=== PATIENT | male | born 1995 | race Caucasian/White ===

== ENCOUNTER 2016-08-09 20:11 | Emergency (ER) | payer BC, OTHER ==
[~2016-08-09] VITALS: Ht 182.9 cm; Wt 65.0 kg
[2016-08-09 20:13] VITALS: BP 144/84; PULSE 91; RESP 15; TEMP 98.1; O2SAT 98
[2016-08-09 23:00] VITALS: BP 132/82; PULSE 71; RESP 15; O2SAT 98
[2016-08-09 23:00] LABS: AUTOMATED NEUTROPHIL # 4.7 TH/MM3 (1.8-7.7); BASOPHIL % 0.6 % (0.0-2.0); EOSINOPHIL % 0.3 % (0.0-4.0); HEMATOCRIT 44.1 % (39.0-51.0); HEMO FLAGS DIFF FINAL; LYMPH % 30.4 % (9.0-44.0); LYMPHOCYTE # 2.3 TH/MM3 (1.0-4.8); MEAN CELL VOLUME 83.3 FL (80.0-100.0); MEAN CORPUSCULAR HEMOGLOBIN 28.7 PG (27.0-34.0); MEAN CORPUSCULAR HGB CONC 34.5 % (32.0-36.0); MONO % 6.7 % (0.0-8.0); PLATELET COUNT 272 TH/MM3 (150-450); RED BLOOD COUNT 5.29 MIL/MM3 (4.50-5.90); RED CELL DISTRIBUTION WIDTH 12.8 % (11.6-17.2); WHITE BLOOD COUNT 7.5 TH/MM3 (4.0-11.0)
[2016-08-09 23:15] LABS: BACTERIA, URINE RARE /hpf; BLOOD, URINE NEG (NEG); COMMENT (UR) CULT NOT INDICATED; CULTURE IF INDICATED CULT NOT INDICATED; GLUCOSE,URINE NEG (NEG); KETONE, URINE NEG (NEG); MUCUS URINE FEW /lpf (OCC); NITRITE,URINE NEG (NEG); SQUAMOUS EPITHELIAL CELL URINE <1 /hpf (0-5); URINE COLOR YELLOW (YELLW/STRAW)
[2016-08-09 23:20] LABS: ANION GAP 8 MEQ/L (5-15); AST (GOT) 9 U/L (15-39); BICARBONATE 31.5 MEQ/L (21.0-32.0); BLOOD UREA NITROGEN 10 MG/DL (7-18); CHLORIDE 100 MEQ/L (98-107); GLOMERULAR FILTRATION RATE 105 ML/MIN (>89); POTASSIUM 4.2 MEQ/L (3.5-5.1); SODIUM (NA) 139 MEQ/L (136-145)
[2016-08-09] MEDS ORDERED: SODIUM CHLOR 0.9% 1000 ML INJ 1,000 ML IV SCH (23:22)
[2016-08-09 23:23] LABS: ALKALINE PHOSPHATASE 69 U/L (45-117); ALT (GPT) 19 U/L (9-52); TOTAL BILIRUBIN ADULT 0.4 MG/DL (0.2-1.0)
[2016-08-09] MEDS ORDERED: LIDOCAINE VISCOUS 2% SOLN 15 ML UDC PO ONE (23:30)
[2016-08-09] MEDS ORDERED: ALUMINUM/MAGNESIUM/SIMETH 30 ML CUP PO ONE (23:30)
[2016-08-09] MEDS ORDERED: FAMOTIDINE 20 MG/2 ML VIAL IV PUSH ONE (23:30)
[2016-08-09] MEDS ORDERED: DICYCLOMINE HCL 20 MG/2 ML VIAL IM ONE (23:30)
[2016-08-09] MEDS ORDERED: DICYCLOMINE HCL 10 MG CAP PO ONE (23:45)
[2016-08-10] MEDS ORDERED: KETOROLAC TROMETHAMINE 30 MG/ML (IVP) VIAL IV PUSH ONE (01:15)
[2016-08-10] MEDS ORDERED: CYCLOBENZAPRINE HCL 10 MG TAB PO ONE (01:15)
--- NOTE | 2016-08-10 01:56 | PD ---
HPI Chief Complaint: Abdominal Pain Time Seen by Provider: 23:07 Travel History International Travel<30 days: No Contact w/Intl Traveler<30days: No Traveled to known affect area: No History of Present Illness HPI Patient is a 21-year-old male comes in complaining of abdominal pain. He says he feels like he has a muscle cramp around his belly button. He has been seen 3 other times for this. He had a CAT scan done that showed no abnormalities. Surgery was consult it who suggested GI follow-up. Patient has not been taking any pain medicine. He was worried that ibuprofen could cause a GI bleed. He is also concerned about becoming addicted to pain medicine. He denies nausea or vomiting. It does not seem that pain is related to food. He says the pain is worse when he moves around. PFSH Past Medical History Medical History: Denies Significant Hx Diminished Hearing: No Immunizations Current: Yes Tetanus Vaccination: Unknown Influenza Vaccination: No Past Surgical History Surgical History: No Previous Surgery Social History Alcohol Use: No Tobacco Use: No Substance Use: No Allergies-Medications (Allergen,Severity, Reaction): Coded Allergies: No Known Allergies (Verified , 08/09/16) Reported Meds & Prescriptions Reported Meds & Active Scripts Active No Active Prescriptions or Reported Medications Review of Systems Except as stated in HPI: all other systems reviewed are Neg General / Constitutional: No: Fever, Chills HENT: No: Headaches, Lightheadedness Cardiovascular: No: Chest Pain or Discomfort Respiratory: No: Shortness of Breath Gastrointestinal: Positive: Abdominal Pain, No: Nausea, Vomiting Musculoskeletal: No: Edema, Pain Neurologic: No: Weakness, Dizziness Physical Exam Narrative GENERAL: Awake and alert, in no acute distress. SKIN: Warm and dry. HEAD: Atraumatic. Normocephalic. EYES: Pupils equal and round. No scleral icterus. ENT: Mucous membranes pink and moist. NECK: Trachea midline. No JVD. CARDIOVASCULAR: Regular rate and rhythm. No murmur appreciated. RESPIRATORY: No accessory muscle use. Clear to auscultation. Breath sounds equal bilaterally. GASTROINTESTINAL: Abdomen soft, nondistended. Mild tenderness around the umbilicus. Pain caused by movement of the trunk. No rebound or guarding. MUSCULOSKELETAL: No obvious deformities. No clubbing. No cyanosis. No edema. NEUROLOGICAL: Awake and alert. No obvious cranial nerve deficits. Motor grossly within normal limits. Normal speech. PSYCHIATRIC: Appropriate mood and affect; insight and judgment normal. Data Data Last Documented VS Vital Signs Date Time Temp Pulse Resp B/P Pulse Ox O2 Delivery O2 Flow Rate FiO2 08/09/16 23:00 71 15 132/82 98 Room Air 08/09/16 20:13 98.1 Orders Complete Blood Count With Diff (08/09/16 22:20) Comprehensive Metabolic Panel (08/09/16 22:20) Urinalysis - C+S If Indicated (08/09/16 22:20) Lipase (08/09/16 22:20) Lactic Acid (08/09/16 23:22) Iv Access Insert/Monitor (08/09/16 23:22) Sodium Chlor 0.9% 1000 Ml Inj (Ns 1000 M (08/09/16 23:22) Famotidine Inj (Pepcid Inj) (08/09/16 23:30) Dicyclomine Inj (Bentyl Inj) (08/09/16 23:30) Al-Mag Hy-Si 40-40-4 Mg/Ml Liq (Mag-Al P (08/09/16 23:30) Lidocaine 2% Viscous (Xylocaine 2% Visco (08/09/16 23:30) Dicyclomine (Bentyl) (08/09/16 23:45) Ketorolac Inj (Toradol Inj) (08/10/16 01:15) Cyclobenzaprine (Flexeril) (08/10/16 01:15) Labs Laboratory Tests Test 08/09/16 08/09/16 08/10/16 22:30 22:33 00:00 Urine Color YELLOW Urine Turbidity HAZY Urine pH 8.0 Urine Specific [place] 1.019 Urine Protein TRACE mg/dL Urine Glucose (UA) NEG mg/dL Urine Ketones NEG mg/dL Urine Occult Blood NEG Urine Nitrite NEG Urine Bilirubin NEG Urine Urobilinogen LESS THAN 2.0 MG/DL Urine Leukocyte Esterase NEG Urine RBC 1 /hpf Urine WBC 1 /hpf Urine Squamous Epithelial <1 /hpf Cells Urine Amorphous Sediment RARE Urine Bacteria RARE /hpf Urine Mucus FEW /lpf Microscopic Urinalysis Comment CULT NOT INDICATED White Blood Count 7.5 TH/MM3 Red Blood Count 5.29 MIL/MM3 Hemoglobin 15.2 GM/DL Hematocrit 44.1 % Mean Corpuscular Volume 83.3 FL Mean Corpuscular Hemoglobin 28.7 PG Mean Corpuscular Hemoglobin 34.5 % Concent Red Cell Distribution Width 12.8 % Platelet Count 272 TH/MM3 Mean Platelet Volume 7.5 FL Neutrophils (%) (Auto) 62.0 % Lymphocytes (%) (Auto) 30.4 % Monocytes (%) (Auto) 6.7 % Eosinophils (%) (Auto) 0.3 % Basophils (%) (Auto) 0.6 % Neutrophils # (Auto) 4.7 TH/MM3 Lymphocytes # (Auto) 2.3 TH/MM3 Monocytes # (Auto) 0.5 TH/MM3 Eosinophils # (Auto) 0.0 TH/MM3 Basophils # (Auto) 0.0 TH/MM3 CBC Comment DIFF FINAL Differential Comment Sodium Level 139 MEQ/L Potassium Level 4.2 MEQ/L Chloride Level 100 MEQ/L Carbon Dioxide Level 31.5 MEQ/L Anion Gap 8 MEQ/L Blood Urea Nitrogen 10 MG/DL Creatinine 0.92 MG/DL Estimat Glomerular Filtration 105 ML/MIN Rate Random Glucose 95 MG/DL Calcium Level 9.0 MG/DL Total Bilirubin 0.4 MG/DL Aspartate Amino Transf 9 U/L (AST/SGOT) Alanine Aminotransferase 19 U/L (ALT/SGPT) Alkaline Phosphatase 69 U/L Total Protein 8.2 GM/DL Albumin 4.4 GM/DL Lipase 106 U/L Lactic Acid Level 1.1 mmol/L [facility] Medical Decision Making Medical Screen Exam Complete: Yes Emergency Medical Condition: Yes Medical Record Reviewed: Yes Differential Diagnosis Muscle strain versus hernia versus GERD versus gastritis Narrative Course Patient is a 21-year-old male comes in complaining of abdominal pain around his umbilicus. Exam shows mild tenderness, pain is more so with movement. Of note patient was here 3 times in the past few days for the same thing. His H number at that time was [id number]. He had a CT done that showed no abnormalities. He had a surgical consult that he believed he needed to follow up with GI. Patient refused GI cocktail. Labs were sent and show no acute abnormalities. Lactic acid is within normal limits. I did not feel it was necessary to repeat his imaging at this time. Patient given Toradol and Flexeril with relief of his symptoms. Will be discharged with a prescription for Flexeril. Advised to take the ibuprofen. Advised follow-up with gastroenterology. Advised to return to the ED as needed for any worsening symptoms. Diagnosis Primary Impression: Abdominal wall pain Patient Instructions: Abdominal Pain (ED), General Instructions Additional Instructions: Take Ibuprofen and Flexeril as needed for pain. Follow up with gastroenterology. Return to the ED as needed for any worsening symptoms. Scripts Cyclobenzaprine (Flexeril)10 Mg Tab10 Mg PO TID #15 TAB Ref 0 Prov:Richelle Urbina MD 08/10/16 Disposition: 01 DISCHARGE HOME Condition: Stable Richelle Urbina MD Aug 10, 2016 01:56
[2016-08-10] MEDS ORDERED: CYCL1TAB29 PO (02:01)
== END 2016-08-10 02:49 | disposition home or self-care (01) ==
LOC: NEPC 20:11
DX: R10.9 Unspecified abdominal pain (principal)
CPT/HCPCS: 80053; 81001; 83605; 83690; 85025; 96374; 96375; 99283; J1885; J7030

== ENCOUNTER 2016-08-10 20:35 | Emergency (ER) | payer BC ==
[~2016-08-10] VITALS: Ht 182.9 cm; Wt 63.0 kg
[~2016-08-10 20:35] MED LIST: CYCL1TAB29 PO
[2016-08-10 20:36] VITALS: BP 163/104; PULSE 108; RESP 18; TEMP 98; O2SAT 98
[2016-08-10] MEDS ORDERED: ONDANSETRON HCL 4 MG/2 ML VIAL IV PUSH ONE (22:30)
[2016-08-10] MEDS ORDERED: MORPHINE SULFATE 4 MG/ML INJ IV PUSH ONE (22:30)
[2016-08-10] MEDS ORDERED: SODIUM CHLOR 0.9% 1000 ML INJ 1,000 ML IV ONE (22:30)
[2016-08-10] MEDS ORDERED: DICYCLOMINE HCL 20 MG/2 ML VIAL IM ONE (22:30)
--- NOTE | 2016-08-10 22:32 | PD ---
HPI Chief Complaint: Abdominal Pain Time Seen by Provider: 22:26 Travel History International Travel<30 days: No Contact w/Intl Traveler<30days: No Traveled to known affect area: No History of Present Illness HPI Patient is a 21-year-old male with his fourth presentation emergency department this week for abdominal pain. Patient has been seen here last night and had labs which were negative. He was CAT scan outside facility which was normal. He was given a laxative and stated take some hours to work and afterwards he passed some dark stools which was Hemoccult negative. Patient states his abdominal pain is periumbilical and his bilateral lower quadrants, with occasional radiation to his testicles without dysuria. Patient's also stating he's been passing "clear pellets of stool". Patient is concerned that he might have a tapeworm. Patient states he was discharged with Flexeril yesterday and has taken one at home which did not relieve this pain. He states the pain is still intensive came back to the emergency department. Patient states several times during history that he is not looking for pain medicine but wants the pain to go away. Per the chart he has declined opiate several times and declined Bentyl last time as well. Denies any fevers mild nausea without any vomiting. PFSH Past Medical History Medical History: Denies Significant Hx Diminished Hearing: No Immunizations Current: Yes Past Surgical History Surgical History: No Previous Surgery Social History Alcohol Use: No Tobacco Use: No (never) Substance Use: No Allergies-Medications (Allergen,Severity, Reaction): Coded Allergies: No Known Allergies (Verified , 08/10/16) Reported Meds & Prescriptions Reported Meds & Active Scripts Active Flexeril (Cyclobenzaprine HCl) 10 Mg Tab 10 Mg PO TID Review of Systems Except as stated in HPI: all other systems reviewed are Neg Physical Exam Narrative GENERAL: Well-developed well-nourished in mild pain. SKIN: Warm and dry. HEAD: Atraumatic. Normocephalic. EYES: Pupils equal and round. No scleral icterus. No injection or drainage. ENT: No nasal bleeding or discharge. Mucous membranes pink and moist. NECK: Trachea midline. No JVD. CARDIOVASCULAR: Regular rate and rhythm. No murmur appreciated. RESPIRATORY: No accessory muscle use. Clear to auscultation. Breath sounds equal bilaterally. GASTROINTESTINAL: Thin abdomen Abdomen soft, non-tender, nondistended. Hepatic and splenic margins not palpable. GENITOURINARY: Testes normal, cremaster reflex intact, circumcised penis. No lesions. MUSCULOSKELETAL: No obvious deformities. No clubbing. No cyanosis. No edema. NEUROLOGICAL: Awake and alert. No obvious cranial nerve deficits. Motor grossly within normal limits. Normal speech. PSYCHIATRIC: Appropriate mood and affect; insight and judgment normal. Data Data Last Documented VS Vital Signs Date Time Temp Pulse Resp B/P Pulse Ox O2 Delivery O2 Flow Rate FiO2 08/10/16 20:36 98.0 108 18 163/104 98 Orders Complete Blood Count With Diff (08/10/16 21:18) Comprehensive Metabolic Panel (08/10/16 21:18) Urinalysis - C+S If Indicated (08/10/16 21:18) Lipase (08/10/16 21:18) Us Testicles W Doppler (08/10/16 ) Ct Abd/Pel W Iv Contrast(Rout) (08/10/16 ) Lactic Acid (08/10/16 22:26) Sodium Chlor 0.9% 1000 Ml Inj (Ns 1000 M (08/10/16 22:30) Ondansetron Inj (Zofran Inj) (08/10/16 22:30) Dicyclomine Inj (Bentyl Inj) (08/10/16 22:30) Morphine Inj (Morphine Inj) (08/10/16 22:30) Oral Contrast - Adult (08/10/16 22:32) Stool Ova And Parasite Screen (08/10/16 22:32) Diatrizoate Liq ( Gastroview Liq) (08/10/16 23:15) Iohexol 350 Inj (Omnipaque 350 Inj) (08/11/16 00:32) Labs Laboratory Tests Test 08/10/16 08/10/16 23:00 23:15 White Blood Count 7.2 TH/MM3 Red Blood Count 5.15 MIL/MM3 Hemoglobin 14.8 GM/DL Hematocrit 42.8 % Mean Corpuscular Volume 83.0 FL Mean Corpuscular Hemoglobin 28.7 PG Mean Corpuscular Hemoglobin 34.6 % Concent Red Cell Distribution Width 12.3 % Platelet Count 243 TH/MM3 Mean Platelet Volume 7.7 FL Neutrophils (%) (Auto) 60.9 % Lymphocytes (%) (Auto) 31.4 % Monocytes (%) (Auto) 6.5 % Eosinophils (%) (Auto) 0.3 % Basophils (%) (Auto) 0.9 % Neutrophils # (Auto) 4.4 TH/MM3 Lymphocytes # (Auto) 2.3 TH/MM3 Monocytes # (Auto) 0.5 TH/MM3 Eosinophils # (Auto) 0.0 TH/MM3 Basophils # (Auto) 0.1 TH/MM3 CBC Comment DIFF FINAL Differential Comment Lactic Acid Level 1.8 mmol/L Sodium Level 144 MEQ/L Potassium Level 3.4 MEQ/L Chloride Level 104 MEQ/L Carbon Dioxide Level 28.8 MEQ/L Anion Gap 11 MEQ/L Blood Urea Nitrogen 14 MG/DL Creatinine 0.98 MG/DL Estimat Glomerular Filtration 98 ML/MIN Rate Random Glucose 91 MG/DL Calcium Level 8.7 MG/DL Total Bilirubin 0.3 MG/DL Aspartate Amino Transf 7 U/L (AST/SGOT) Alanine Aminotransferase 17 U/L (ALT/SGPT) Alkaline Phosphatase 61 U/L Total Protein 7.5 GM/DL Albumin 4.2 GM/DL Lipase 101 U/L Urine Color LIGHT-YELLOW Urine Turbidity CLEAR Urine pH 7.0 Urine Specific [place] 1.013 Urine Protein NEG mg/dL Urine Glucose (UA) NEG mg/dL Urine Ketones NEG mg/dL Urine Occult Blood NEG Urine Nitrite NEG Urine Bilirubin NEG Urine Urobilinogen LESS THAN 2.0 MG/DL Urine Leukocyte Esterase NEG Urine WBC 1 /hpf Microscopic Urinalysis Comment CULT NOT INDICATED MDM Medical Decision Making Medical Screen Exam Complete: Yes Emergency Medical Condition: Yes Differential Diagnosis Abdominal pain, acute abdomen highly likely, urinary tract infection, colitis, cholecystitis, gastritis, gastroenteritis, musculoskeletal strain. Narrative Course Patient is a 21-year-old male who is his fourth presentation to the emergency department for abdominal pain this week. He is seen at [facility] had CAT scan which was negative. He is also been seen at [facility] which time he had a surgical consultation. He was seen here last night with repeat labs and discharged with Flexeril. To avoid anchoring bias I have ordered a complete workup. I've discussed with him that there is risk of having repeat contrast and repeat radiation for cancer and kidney failures and he states he has to no was causing his abdominal pain. CAT scan is ordered and shows no acute intracranial abnormality with both IV and by mouth contrast. Patient was given morphine and Bentyl and states this caused him to be dizziness and feeling like he is going to pass out. He has ambulated all around the pod while in the emergency department in no apparent distress. He states he feels like he is going to pass out. He denies any palpitations but just states he feels very dizzy. He is accompanied by his significant other who states that they are at their wits and didn't want to be admitted to the hospital for further evaluation. Patient has made it apparent that he does not want any pain medications for this and again denies any additional doses of pain medicine after he is and talked into some morphine by me. His abdomen is benign. He does have GI follow-up on Friday in less than 2 days he tells me. I have added an ultrasound of his scrotum because he states the abdominal pain sometimes radiates to his scrotum and this is negative as well. Unfortunately I see no emergent cause to his abdominal pain and no life or limb threatening cause either. Unfortunately I do not see a cause. I explained to him that multiple textbooks site that 80-90% of patients to come into the emergency department with abdominal pain we will not ascertain the cause of her abdominal pain here and that is where her lie on primary care providers and specialist such as a commodity trader she's been referred to follow-up with him. I do not see an indication to admit him to the hospital for further workup at this time he is stable for discharge. He and his significant other are significantly upset with this and we have reassured him at this time he is welcome to return should any if he has any concerning signs symptoms. Diagnosis Primary Impression: Abdominal pain Qualified Code: R10.30 - Lower abdominal pain Referrals: Tete Arias MD Disposition: 01 DISCHARGE HOME Condition: Stable Rich Nails MD Aug 10, 2016 22:32
[2016-08-10] MEDS ORDERED: DIATRIZOATE MEGLUM/DIATRIZOATE SOD 9 ML CUP ONE (23:15)
[2016-08-10 23:25] LABS: AUTOMATED NEUTROPHIL # 4.4 TH/MM3 (1.8-7.7); BASOPHIL # 0.1 TH/MM3 (0-0.2); BASOPHIL % 0.9 % (0.0-2.0); EOSINOPHIL % 0.3 % (0.0-4.0); HEMATOCRIT 42.8 % (39.0-51.0); HEMO FLAGS DIFF FINAL; LYMPH % 31.4 % (9.0-44.0); LYMPHOCYTE # 2.3 TH/MM3 (1.0-4.8); MEAN CORPUSCULAR HEMOGLOBIN 28.7 PG (27.0-34.0); MEAN CORPUSCULAR HGB CONC 34.6 % (32.0-36.0); MONO % 6.5 % (0.0-8.0); NEUT % 60.9 % (16.0-70.0); PLATELET COUNT 243 TH/MM3 (150-450); RED BLOOD COUNT 5.15 MIL/MM3 (4.50-5.90); RED CELL DISTRIBUTION WIDTH 12.3 % (11.6-17.2); WHITE BLOOD COUNT 7.2 TH/MM3 (4.0-11.0)
[2016-08-10 23:38] LABS: BLOOD, URINE NEG (NEG); COMMENT (UR) CULT NOT INDICATED; CULTURE IF INDICATED CULT NOT INDICATED; GLUCOSE,URINE NEG (NEG); KETONE, URINE NEG (NEG); NITRITE,URINE NEG (NEG); URINE COLOR LIGHT-YELLOW (YELLW/STRAW)
[2016-08-11 00:05] LABS: ALKALINE PHOSPHATASE 61 U/L (45-117); ALT (GPT) 17 U/L (9-52); ANION GAP 11 MEQ/L (5-15); AST (GOT) 7 U/L (15-39); BICARBONATE 28.8 MEQ/L (21.0-32.0); BLOOD UREA NITROGEN 14 MG/DL (7-18); CHLORIDE 104 MEQ/L (98-107); GLOMERULAR FILTRATION RATE 98 ML/MIN (>89); POTASSIUM 3.4 MEQ/L (3.5-5.1); SODIUM (NA) 144 MEQ/L (136-145); TOTAL BILIRUBIN ADULT 0.3 MG/DL (0.2-1.0)
[2016-08-11] MEDS ORDERED: IOHEXOL 350 MG/ML 10 ML VIAL (for RAD DIAG) IV ONE (00:32)
--- NOTE | 2016-08-11 01:05 | RADRPT ---
EXAM DATE/TIME: 08/11/2016 00:07 [facility] COMPARISON: No previous studies available for comparison. INDICATIONS : Scrotal pain. MEDICAL HISTORY : Lower abdominal pain. Scrotal pain. SURGICAL HISTORY : None. ENCOUNTER: Initial ACUITY: 3 days PAIN SCORE: 9/10 LOCATION: Bilateral scrotum. MEASUREMENTS: RIGHT TESTICLE: 4.8 x 3.0 x 2.4cm LEFT TESTICLE: 4.0 x 3.0 x 2.1cm FINDINGS: RIGHT TESTICLE: Homogeneous echotexture without intra or extratesticular mass. Blood flow is symmetric and within no rmal limits. No hydrocele or varicocele. Epididymis is within normal limits. LEFT TESTICLE: Homogeneous echotexture without intra or extratesticular mass. Blood flow is symmetric and within no rmal limits. No hydrocele or varicocele. Epididymis is within normal limits. SCROTUM: Within normal limits. CONCLUSION: Normal examination. Bebo Jose MD on August 11, 2016 at 1:03 Board Certified Radiologist. This report was verified electronically.
--- NOTE | 2016-08-11 01:08 | RADRPT ---
EXAM DATE/TIME: 08/11/2016 00:31 [facility] COMPARISON: No previous studies available for comparison. INDICATIONS : Bilateral lower quadrant abdominal pain. IV CONTRAST: 95 cc Omnipaque 350 (iohexol) IV ORAL CONTRAST: Prescribed oral contrast ingested. RADIATION DOSE: 4.52 CTDIvol (mGy) MEDICAL HISTORY : None SURGICAL HISTORY : None. ENCOUNTER: Initial ACUITY: 4 - 6 days PAIN SCALE: 10/10 LOCATION: Bilateral lower quadrant abdomen TECHNIQUE: Volumetric scanning of the abdomen and pelvis was performed. Using automated exposure control and ad justment of the mA and/or kV according to patient size, radiation dose was kept as low as reasonably achievable to obtain optimal diagnostic quality images. FINDINGS: LOWER LUNGS: The visualized lower lungs are clear. LIVER: Homogeneous density without lesion. There is no dilation of the biliary tree. No calcified gallston es. SPLEEN: Normal size without lesion. PANCREAS: Within normal limits. KIDNEYS: Normal in size and shape. There is no mass, stone or hydronephrosis. ADRENAL GLANDS: Within normal limits. VASCULAR: There is no aortic aneurysm. BOWEL/MESENTERY: The stomach, small bowel, and colon demonstrate no acute abnormality. There is no free intraperitone al air or fluid. ABDOMINAL WALL: Within normal limits. RETROPERITONEUM: There is no lymphadenopathy. BLADDER: No wall thickening or mass. REPRODUCTIVE: Within normal limits. INGUINAL: There is no lymphadenopathy or hernia. MUSCULOSKELETAL: Within normal limits for patient age. CONCLUSION: Normal examination. Bebo Jose MD on August 11, 2016 at 1:04 Board Certified Radiologist. This report was verified electronically.
== END 2016-08-11 03:28 | disposition home or self-care (01) ==
LOC: NEPC 20:35
DX: R10.9 Unspecified abdominal pain (principal)
CPT/HCPCS: 74177; 76870; 80053; 81001; 83605; 83690; 85025; 93975; 96372; 96374; 96375; 99284; J0500; J2270; J2405; J7030; Q9963; Q9967

== ENCOUNTER 2016-08-11 23:54 | Emergency (ER) | payer BC ==
[~2016-08-11] VITALS: Ht 180.3 cm; Wt 63.0 kg
[2016-08-11 23:57] VITALS: BP 166/96; PULSE 124; RESP 22; TEMP 98.2; O2SAT 98
--- NOTE | 2016-08-12 00:22 | PD ---
HPI Chief Complaint: Abdominal Pain Time Seen by Provider: 00:15 Travel History International Travel<30 days: No Contact w/Intl Traveler<30days: No Traveled to known affect area: No History of Present Illness HPI This is a 21-year-old gentleman who has been seen 6 times in [place] for abdominal pain. The patient was last seen here yesterday, was seen earlier at [place] and seen at [facility] 4 times. The patient even had a surgical consult when he was in [place] and the surgeon told him he did not feel there is anything surgical at the time and that he should see the GI specialist. He did remark that of the GI doctors were not able to find anything , he would be happy to see him in his office and possibly's schedule an exploratory laparoscopic examination. The patient's worried that he has an umbilical hernia. He states that he looked down and thought he saw purplish color in his umbilicus and was worried that he had a hernia. He states he looked online and was concerned that it was an incarcerated hernia. He denies any constipation, nausea vomiting,. PFSH Past Medical History Diminished Hearing: No Immunizations Current: Yes Social History Alcohol Use: No Tobacco Use: No (never) Substance Use: No Allergies-Medications (Allergen,Severity, Reaction): Coded Allergies: No Known Allergies (Verified , 08/10/16) Reported Meds & Prescriptions Reported Meds & Active Scripts Active Flexeril (Cyclobenzaprine HCl) 10 Mg Tab 10 Mg PO TID Review of Systems Gastrointestinal: Positive: Abdominal Pain, No: Nausea, Vomiting, Constipation Genitourinary: Positive: Other (no testicular pain.) Physical Exam Narrative GENERAL: Well-nourished, well-developed patient. SKIN: Warm and dry. HEAD: Normocephalic/atraumatic. EYES: No scleral icterus. No injection or drainage. GASTROINTESTINAL: Abdomen soft, nondistended. There is no rebound or guarding. On examination of his umbilicus, there is no evidence of hernia. He was concerned because there was asymmetry in his umbilicus. I heard him that this is a normal variant. I also assured him that there was no evidence of incarcerated hernia or hernia that I could appreciate. NEUROLOGICAL: Awake and alert. Cranial nerves II through XII intact. Motor grossly within normal limits. Five out of 5 muscle strength in all muscle groups. Normal speech. Data Data Last Documented VS Vital Signs Date Time Temp Pulse Resp B/P Pulse Ox O2 Delivery O2 Flow Rate FiO2 08/11/16 23:57 98.2 124 22 166/96 98 MDM Medical Decision Making Medical Screen Exam Complete: Yes Emergency Medical Condition: Yes Medical Record Reviewed: Yes Differential Diagnosis Nonspecific pain versus reducible hernia versus inflammatory bowel disease Narrative Course 21-year-old male who presents for the seventh time to an emergency department with continued pain of his abdomen. The patient's had 2 CAT scans and ultrasound of his testicles which were all negative. The patient had blood work done yesterday that was all within normal limits. He is not wishing to have any pain medicines at this time. Today he was worried that his umbilicus was discolored. On my examination he has no evidence of a hernia. His umbilicus appears within normal limits. I tried to reassure them that at this point there is not a medical or surgical emergency. I did offer to give him an abdominal binder and encouraged him to follow up with his gastroenterology appointment tomorrow at 8:30. He was agreeable to the plan. Diagnosis Primary Impression: recurrent umbilical abdominal pain Additional Instructions: Where binder for comfort. Follow up with your 8:30 gastroenterology appointment Disposition: DISCHARGE HOME Condition: Stable Florian Black MD Aug 12, 2016 00:22
== END 2016-08-12 01:17 | disposition home or self-care (01) ==
LOC: NEPE 23:54
DX: R10.9 Unspecified abdominal pain (principal)
CPT/HCPCS: 99283

== ENCOUNTER 2017-01-08 15:36 | Emergency (ER) | payer BC ==
[~2017-01-08] VITALS: Ht 182.9 cm; Wt 69.5 kg
[~2017-01-08 15:36] MED LIST changes: +ACET500T36 PO; +IBUP-232 PO
[2017-01-08 15:46] VITALS: BP 129/82; PULSE 79; RESP 16; TEMP 98.6; O2SAT 100
--- NOTE | 2017-01-08 15:50 | PD ---
HPI Chief Complaint: ENT Complaint Time Seen by Provider: 15:50 Travel History International Travel<30 days: No Contact w/Intl Traveler<30days: No Traveled to known affect area: No History of Present Illness HPI 21-year-old male presents to the emergency Department with 2 day history of worsening pharyngitis pain and swelling. Patient denies headache, sinus congestion or postnasal drip, ear pain, fever, chills, nausea, or vomiting. Patient denies heartburn. Patient states today the pain is 5 out of 10. He is able to eat but it is uncomfortable. He has no known drug allergies. [facility] Past Medical History Diminished Hearing: No Immunizations Current: Yes Social History Alcohol Use: No Tobacco Use: No (never) Substance Use: No Allergies-Medications (Allergen,Severity, Reaction): Coded Allergies: No Known Allergies (Verified , 01/08/17) Reported Meds & Prescriptions Reported Meds & Active Scripts Active Amoxicillin 875 Mg Tab 875 Mg PO BID Review of Systems General / Constitutional: No: Fever Eyes: No: Visual changes HENT: Positive: Sore Throat, No: Headaches, Rhinitis, Rhinorrhea, Congestion, Nosebleed, Neck Stiffness, Neck Pain, Ear Discharge, Earache Cardiovascular: No: Chest Pain or Discomfort Respiratory: No: Shortness of Breath Gastrointestinal: No: Abdominal Pain Genitourinary: No: Dysuria Musculoskeletal: No: Pain Skin: No Rash Neurologic: No: Weakness Psychiatric: No: Depression Endocrine: No: Polydipsia Hematologic/Lymphatic: No: Easy Bruising Physical Exam Narrative GENERAL: Patient appears in no acute distress. SKIN: Warm and dry. Normal color. Normal turgor. HEAD: Atraumatic. Normocephalic. EYES: Pupils equal and round. No scleral icterus. No injection or drainage. ENT: No nasal bleeding or discharge. Mucous membranes pink and moist. TMs are clear bilaterally. No sinus tenderness to percussion. No obvious signs of post nasal drip. Posterior pharynx is erythematous and injected with mild inflammation bilaterally consistent with strep pharyngitis. Tonsils are not significantly enlarged. Uvula is midline. NECK: Trachea midline. No JVD. CARDIOVASCULAR: Regular rate and rhythm. RESPIRATORY: No accessory muscle use. Clear to auscultation. Breath sounds equal bilaterally. GASTROINTESTINAL: Abdomen soft, non-tender, nondistended. Hepatic and splenic margins not palpable. MUSCULOSKELETAL: Extremities without clubbing, cyanosis, or edema. No obvious deformities. NEUROLOGICAL: Awake and alert. No obvious cranial nerve deficits. Motor grossly within normal limits. Five out of 5 muscle strength in the arms and legs. Normal speech. PSYCHIATRIC: Appropriate mood and affect; insight and judgment normal. Data Data Last Documented VS Vital Signs Date Time Temp Pulse Resp B/P Pulse Ox O2 Delivery O2 Flow Rate FiO2 01/08/17 15:46 98.6 79 16 129/82 100 MDM Medical Decision Making Medical Screen Exam Complete: Yes Emergency Medical Condition: Yes Differential Diagnosis Sore throat. Pharyngitis. Tonsillitis. Strep throat. Mononucleosis. Narrative Course Based on the patient's history and physical I feel he strep pharyngitis. Patient is treated with amoxicillin 875 twice a day 10 days. Patient is to use [id number] Tylenol or ibuprofen as needed. Work note for today is given. Patient follow up if symptoms do not improve or worsen in the next several days. Diagnosis Primary Impression: Pharyngitis, acute Qualified Code: J02.9 - Acute pharyngitis, unspecified etiology Referrals: Primary Care Physician Patient Instructions: General Instructions, Pharyngitis (ED) Departure Forms: Work Release Enter return to work date: Jan 09, 2017 Additional Instructions: Based on the patient's history and physical I feel he strep pharyngitis. Patient is treated with amoxicillin 875 twice a day 10 days. Patient is to use [id number] Tylenol or ibuprofen as needed. Work note for today is given. Patient follow up if symptoms do not improve or worsen in the next several days. Med/Other Pt SpecificInfo: Prescription(s) given Scripts Amoxicillin 875 Mg [id number] Mg PO BID #20 TAB Prov:Richelle Urbina MD 01/08/17 Disposition: 01 DISCHARGE HOME Condition: Stable Alex Ballesteros Jan 08, 2017 15:50
[2017-01-08] MEDS ORDERED: AMOX875T PO (15:56)
== END 2017-01-08 16:08 | disposition home or self-care (01) ==
LOC: PHEFT 15:36
DX: J02.9 Acute pharyngitis, unspecified (principal)
CPT/HCPCS: 99283

== ENCOUNTER 2017-07-21 13:50 | Emergency (ER) | payer BC ==
[~2017-07-21] VITALS: Ht 182.9 cm; Wt 69.0 kg
[~2017-07-21 13:50] MED LIST changes: -ACET500T36 PO; +AMOX875T PO; -CYCL1TAB29 PO; -IBUP-232 PO
[2017-07-21 14:06] VITALS: BP 132/78; PULSE 63; RESP 16; TEMP 98.7; O2SAT 100
[2017-07-21] MEDS ORDERED: AZITHROMYCIN PWD FOR SUSP 1 GM PACKET PO ONE (14:45)
--- NOTE | 2017-07-21 14:49 | PD ---
HPI Chief Complaint: Complaint Time Seen by Provider: 14:14 Travel History International Travel<30 days: No Contact w/Intl Traveler<30days: No Traveled to known affect area: No History of Present Illness HPI 22-year-old male presents to the ED for evaluation of intermittent lower abdominal pain. He denies fever, chills, nausea, vomiting, penile discharge, testicular pain, dysuria. Endorses unprotected sex with a single female partner. States that his girlfriend was just diagnosed with chlamydia. He is concerned that he may be infected. PFSH Past Medical History Diminished Hearing: No Immunizations Current: Yes Social History Alcohol Use: No Tobacco Use: No (never) Substance Use: No Allergies-Medications (Allergen,Severity, Reaction): Coded Allergies: No Known Allergies (Verified Adverse Reaction, Unknown, 07/21/17) Reported Meds & Prescriptions Reported Meds & Active Scripts Active No Active Prescriptions or Reported Medications Review of Systems Except as stated in HPI: all other systems reviewed are Neg Physical Exam Narrative GENERAL: Well-nourished, well-developed white male in no acute distress. SKIN: Focused skin assessment warm/dry. HEAD: Normocephalic. EYES: No scleral icterus. No injection or drainage. NECK: Supple, trachea midline. No JVD or lymphadenopathy. CARDIOVASCULAR: Regular rate and rhythm without murmurs, gallops, or rubs. RESPIRATORY: Breath sounds clear and equal bilaterally. No accessory muscle use. GASTROINTESTINAL: Abdomen soft, non-tender, nondistended. Active bowel sounds. MUSCULOSKELETAL: No cyanosis, or edema. BACK: Nontender without obvious deformity. No CVA tenderness. Data Data Last Documented VS Vital Signs Date Time Temp Pulse Resp B/P (MAP) Pulse Ox O2 Delivery O2 Flow Rate FiO2 07/21/17 14:06 98.7 63 16 132/78 (96) 100 Orders Orders Azithromycin Powd Pack (Zithromax Powd P (07/21/17 14:45) Ed Discharge Order (07/21/17 15:13) MDM Medical Decision Making Medical Screen Exam Complete: Yes Emergency Medical Condition: Yes Differential Diagnosis Chlamydia versus gonorrhea versus anxiety versus other Narrative Course 22-year-old male presents to the ED for evaluation of intermittent lower abdominal pain. He denies fever, chills, nausea, vomiting, penile discharge, testicular pain, dysuria. Endorses unprotected sex with a single female partner. States that his girlfriend was just diagnosed with chlamydia. He is concerned that he may be infected. Vitals reviewed. Physical exam is unremarkable. Given the patient's recent exposure will treat for Chlamydia. He is administered 1 g azithromycin in the ED. Patient's instructed to use safe sex practices, abstain from sex until test of cure his proven at the health department, undergo full battery of STD screening at the health department, return for worsening symptoms. He indicated understanding of instructions and is agreeable to care plan. The patient is stable and discharged home. Diagnosis Primary Impression: Exposure to chlamydia Referrals: [facility] Dept. Patient Instructions: Chlamydia (ED), General Instructions, Safe Sex (ED) Additional Instructions: Practice safe sex with barrier methods i.e. condoms. Follow-up with the Health Department in one week for test of cure. Notify all partners to be screened and treated. Abstain from sex until test of cure is proven. Return to the ED for worsening symptoms or any urgent or emergent medical condition. Scripts No Active Prescriptions or Reported Meds Disposition: 01 DISCHARGE HOME Condition: Stable Nadia Evans Jul 21, 2017 14:49
== END 2017-07-21 15:38 | disposition home or self-care (01) ==
LOC: PHEFT 13:50
DX: R10.30 Lower abdominal pain, unspecified (principal); Z20.2 Contact with and (suspected) exposure to infections with a predominantly sexual mode of transmission
CPT/HCPCS: 99283